=== PATIENT | male | born 1935 | race Caucasian/White ===

== ENCOUNTER → 2016-12-30 | Outpatient (CLI) | payer OTHER ==
--- NOTE | 2016-12-30 15:48 | DIAGNOSTIC IMAGING REPORT ---
MRI OF THE LUMBAR SPINE WITHOUT IV CONTRAST CLINICAL HISTORY: Right leg pain. Low back pain. COMPARISON STUDY: No priors. TECHNIQUE: MRI of the lumbar spine is performed utilizing various T1 and T2-weighted sequences in the axial and sagittal planes. IV contrast was not administered for this examination. FINDINGS: Lumbar spine: There is a mild and likely chronic compression fracture of L1. No retropulsion of fragments is seen. Vertebral body height is otherwise maintained at the lumbar spine. There is minimal anterolisthesis at L2-L3. Alignment is otherwise preserved. Marrow signal intensity is heterogeneous. Chronic degenerative endplate change is seen at all levels between T12-L1 through L5-S1. Endplate edema is seen at L5-S1. No destructive bony lesion is identified. A hemangioma is incidentally noted in the body of S1. The transverse and spinous processes are grossly intact. A right-sided pars defect is suggested at L5. Intervertebral discs: Degenerative disc desiccation is seen at all levels. Moderate loss of height is noted at L3-L4 and L4-L5. Spinal cord: The partially imaged spinal cord is normal in morphology and signal intensity. The conus medullaris terminates at the level of L1. The nerve roots of the cauda equina are normal in morphology. T12-L1: There is a small posterior disc bulge. The central canal and neural foramina are patent. L1-L2: Unremarkable. L2-L3: There is a small posterior disc bulge. The central canal and neural foramina are widely patent. L3-L4: There is a small posterior disc bulge eccentric to the left. There is no significant acquired compromise of the central canal. There is mild left-sided subarticular stenosis. The neural foramina appear patent. Mild facet arthropathy is of no consequence. L4-L5: There is a small posterior disc bulge eccentric to the right. There is no significant acquired compromise of the central canal. There is right-sided subarticular stenosis, with possible impingement on the exiting right L4 nerve root. Facet arthropathy is of no consequence. The neural foramina are patent. L5-S1: The central canal and neural foramina are patent. Facet arthropathy is of no consequence. Small facet joint effusions are noted. Sacrum: The visualized sacrum is normal in morphology and signal intensity. Soft tissues: There is fatty atrophy of the paraspinous and iliopsoas musculature. Left psoas muscular atrophy is asymmetric as compared to the right. Tiny bilateral renal cysts are observed. The retroperitoneal structures are incompletely assessed. IMPRESSION: 1. There is a mild and chronic-appearing superior endplate compression deformity of L1. Correlation with clinical findings and any prior outside imaging studies will be required. 2. Vertebral body height is otherwise maintained. 3. There is no disc herniation or acquired compromise of the central canal. 4. Lumbosacral spondylosis as detailed above. See discussion for [id number] analysis. 5. Degenerative disc disease with chronic multilevel degenerative endplate change as above. Endplate edema is noted L5-S1. Dictated: 12/30/2016 3:01 PM Transcribed: 12/30/2016 3:48 PM [email or web address] Electronically signed by: Blake Nelson M.D. 12/30/2016 3:57 PM Dictated Date/Time: 12/30/2016 3:01 PM
--- NOTE | 2016-12-31 14:14 | CODING QUERY NO DIAGNOSIS ---
: 1935 TREATMENT RENDERED WITHOUT A DIAGNOSIS To promote full compliance with coding requirements relating to patient care, physician participation is requested in all cases of under ground miner uncertainty. Please assist us with providing a diagnosis/symptom for the test(s) below: A diagnosis/symptom was not documented on your Order. A valid diagnosis/symptom is required to bill all insurances. Please remember that we are unable to code a diagnosis of rule out, probable, possible, questionable, or suspected. Tests that require a diagnosis: DOS: 12/30/16 * Lumbar Spine MRI w/o contrast DIAGNOSIS: Provider Signature: Date: Thank you Milagro Christensen Health Information Management Once completed, please kindly fax back to [phone] For questions please call [phone]
== END ==
LOC: C.MRI 13:56
PROVIDERS: ATTEND Physical Medicine & Rehabilitation
DX: M48.06 Spinal stenosis, lumbar region (principal); M47.817 Spondylosis without myelopathy or radiculopathy, lumbosacral region; M51.36 Other intervertebral disc degeneration, lumbar region; R60.0 Localized edema